=== PATIENT | female | born 1975 | race American Indian/Alaskan Native ===

== ENCOUNTER 2017-08-30 06:09 | Observation (INO) | payer OTHER ==
--- NOTE | 2017-08-23 14:34 | Anesthesia Consultation ---
Anesthesia Consult and Med Hx Date of service: 08/23/17 - Airway Anesthetic Teeth Evaluation: Chipped (right front tooth ) ROM Head & Neck: Adequate Mental/Hyoid Distance: Adequate Mallampati Class: Class II Intubation Access Assessment: Probably Good - Pulmonary Exam CTA: Yes - Cardiac Exam Cardiac Exam: RRR - Pre-Operative Health Status ASA Pre-Surgery Classification: ASA2 Proposed Anesthetic Plan: General Nerve Block: TAP - Cardiovascular System Hx Hypertension: Yes - Hematic Hx Anemia: Yes
[2017-08-23 14:49] LABS: Anion Gap 19 mmol/L; BUN/Creatinine Ratio 13; Blood Urea Nitrogen 8 mg/dL (7-17); Calcium 8.7 mg/dL (8.4-10.2); Carbon Dioxide 25 mmol/L (22-30); Chloride 99.3 mmol/L (98-107); Glucose 91 mg/dL (65-100); Potassium 3.3 mmol/L (3.6-5.0); Sodium 140 mmol/L (137-145)
[2017-08-23 14:58] LABS: Basophils % (Auto) 0.6 % (0.0-1.8); Eosinophils % (Auto) 1.1 % (0.0-4.3); Hematocrit 35.7 % (30.3-42.9); Hemoglobin 11.6 gm/dl (10.1-14.3); Mean Corpuscular HGB Conc 33 % (30-34); Mean Corpuscular Hemoglobin 28 pg (28-32); Mean Corpuscular Volume 85 fl (79-97); Platelet Count 381 K/mm3 (140-440); Red Blood Count 4.22 M/mm3 (3.65-5.03); White Blood Count 7.8 K/mm3 (4.5-11.0)
--- NOTE | 2017-08-29 22:17 | History and Physical Report ---
History of Present Illness Date of examination: 08/29/17 Date of admission: 08/30/2017 Chief complaint: dysfunctional uterine bleeding History of present illness: 42y/o with symptomatic uterine fibroids. She reports profound cramping and pain with her menses. The patient has a known history of uterine fibroids. Recent pelvic ultrasound demonstrated an enlarged uterus measuring 14.7cm with multiple myomas. The largest measuring 4.8cm. The ovaries were unremarkable. The patient has elected for definitive surgical management. Patient has been reassessed/reevaluated/re-examined. H&P has been reviewed. No interval changes. Past History Past Medical History: hypertension, other (uterine fibroids) Past Surgical History: section, other (breast biopsy) [employer] ACCOUNT CLERK History: fibroids Social history: - Obstetrical History : 5 Para: 4 Hx # Term Pregnancies: 3 Number of Pregnancies: 1 Spontaneous Abortions: 1 Induced : 0 Number of Living Children: 4 Medications and Allergies Allergies Allergy/AdvReac Type Severity Reaction Status Date / Time No Known Allergies Allergy Unverified 08/22/17 08:38 Home Medications Medication Instructions Recorded Confirmed Last Taken Type Ferrous Sulfate 325 mg PO DAILY 08/22/17 08/22/17 Unknown History Olmesartan/Amlodipin/Hcthiazid 1 tab PO DAILY 08/22/17 08/22/17 Unknown History [Kbsogvp-Fouzfb-Fldj 40-10-25Mg] Active Meds: Active Medications Famotidine (Pepcid) 20 mg PO PREOP NR Stop: 08/30/17 23:59 Lactated Ringer's (Lactated Ringers) 1,000 mls @ 42 mls/hr IV DIRECT JERONIMO Midazolam HCl (Versed) 2 mg IV PREOP NR Stop: 08/30/17 23:59 Review of Systems All systems: negative Genitourinary: vaginal bleeding, pelvic pain - Vital Signs Vital signs: Vital Signs Temp Pulse Resp BP 98.5 F 76 14 130/80 08/23/17 14:05 08/23/17 14:05 08/23/17 14:05 08/23/17 14:05 Temp Pulse Resp BP Pulse Ox 98.5 F 76 14 130/80 08/23/17 14:05 08/23/17 14:05 08/23/17 14:05 08/23/17 14:05 - Physical Exam Breasts: Positive: deferred Cardiovascular: Regular rate Lungs: Positive: Clear to auscultation Abdomen: Positive: normal appearance Uterus: Positive: enlarged Results Result Diagrams: 08/23/17 13:48 08/23/17 13:48 All other labs normal. Assessment and Plan - Patient Problems (1) Leiomyoma Current Visit: Yes Status: Acute Plan to address problem: proceed with a robotic hysterectomy (2) Dysmenorrhea Current Visit: Yes Status: Acute (3) Menorrhagia Current Visit: Yes Status: Acute
[~2017-08-30 06:09] MED LIST: LACTATED RINGERS 1,000 ML IV SCH; PEPCID PO NR; VERSED IV NR
[2017-08-30] MEDS ORDERED: ANCEF/STERILE WATER 2 GM/20 ML 2 GM/20 ML SYRINGE IV SCH (07:00)
[2017-08-30] MEDS ORDERED: NEOSPORIN GU IR ONE ×2 (07:39→10:13)
[2017-08-30] MEDS ORDERED: GELFOAM POWDER 1GM MM ONE ×2 (07:39→10:13)
[2017-08-30] MEDS ORDERED: THROMBIN (BOVINE) TP ONE ×2 (07:39→10:13)
[2017-08-30] MEDS ORDERED: DIPRIVAN 10 MG/ML IV ONE (07:47)
[2017-08-30] MEDS ORDERED: XYLOCAINE MPF 2% ONE (07:48)
[2017-08-30] MEDS ORDERED: DILAUDID ONE (07:48)
[2017-08-30] MEDS ORDERED: ZEMURON IV ONE (07:48)
--- NOTE | 2017-08-30 07:57 | Anesthesia Day of Surgery ---
Anesthesia Day of Surgery - Day of Surgery Patient Examined: Yes Patient H&P Reviewed: Yes Patient is NPO: Yes
[2017-08-30] MEDS ORDERED: SUBLIMAZE IV NR (08:05)
[2017-08-30] MEDS ORDERED: NACL BACTERIOSTATIC INFILTRATI ONE (08:10)
[2017-08-30] MEDS ORDERED: MARCAINE 0.5% 60 ML INFILTRATI ONE (08:45)
[2017-08-30] MEDS ORDERED: ANCEF/STERILE WATER 2 GM/20 ML IV NR (09:00)
[2017-08-30] MEDS ORDERED: NEURONTIN PO NR (09:00)
[2017-08-30] MEDS ORDERED: NEO SYNEPHRINE/NS Syringe(OR USE) IV ONE (09:38)
[2017-08-30] MEDS ORDERED: ROBINUL ONE (10:03)
[2017-08-30] MEDS ORDERED: LACTATED RINGERS 1,000 ML ONE (10:03)
[2017-08-30] MEDS ORDERED: DECADRON ONE (10:03)
[2017-08-30] MEDS ORDERED: ZOFRAN ONE (10:03)
[2017-08-30] MEDS ORDERED: NEOSTIGMINE ONE (10:04)
[2017-08-30] MEDS ORDERED: NACL 0.9% IR ONE ×2 (10:12→10:13)
--- NOTE | 2017-08-30 11:06 | Operative Report ---
Operative Report Operative Report: Date of surgery: 08/30/2017 Preoperative diagnoses: Symptomatic uterine fibroids; dysmenorrhea; menorrhagia Postoperative diagnoses: Same as above Procedure: Robotic hysterectomy; bilateral salpingectomy; lysis of adhesions Surgeon: Tatyana Dial M.D. Special Education Math Teacher: Regino Manley Anesthesia: Gen. endotracheal anesthesia Estimated blood loss: Less than 100 mL Pathology: Uterus, cervix, leiomyomas, bilateral tubes Indication: 42-year-old with a history of symptomatic uterine 5 voids and worsening menorrhagia. The patient elected to undergo definitive surgical management. Procedure: The patient was taken to the operating room and given general endotracheal anesthesia without complication. She is prepped and draped in a normal sterile fashion. A bivalve speculum was placed in the patient's vagina and a single- tooth tenaculum placed on the anterior lip of the cervix. The uterus was sounded with the uterine sound. A Letsdecco uterine manipulator was placed in the bivalve speculum was then removed. Attention was then turned to the patient's abdomen where a millimeter supra umbilical skin incision was then made. A Veress needle was placed and peritoneal entry was verified water-filled syringe. Insufflation of the peritoneal cavity was performed with CO2 gas. The 12 mm trocar was then placed under direct visualization. An additional 8 mm trocar was placed on the patient's left and right lateral side just opposite of the supraumbilical trocar. An additional 5 mm right lateral trocar was then placed as the accessory port. The patient was then placed in steep Trendelenburg. The da Anthony robot was then engaged. A fenestrated forcep was placed in arm 2 and a vessel sealer was placed in arm 1. The surgeon then transferred to the surgical console. General survey of the patient's abdomen and pelvis revealed an enlarged fibroid uterus. The uterus was noted to be densely adherent to the anterior abdominal wall. Lysis of adhesions had to be performed in order to mobilize the uterus from the anterior abdominal wall. The mesosalpinx was then isolated on the right. The vessel sealer was used to coagulate the mesosalpinx which was then transected. The tube was transected from the ovary. The tubo-ovarian ligament was then coagulated and transected. The round ligament was then coagulated and transected also. The vesicouterine peritoneum was then entered from the patient's right side. The uterine vessels were then coagulated with the vessel sealer. The vessels were then transected . Attention was then turned to the patient's left side where the tubo-ovarian ligament and mesosalpinx were again isolated coagulated and transected. The vesical peritoneum was then entered from the left and joined in the midline. Peritoneum was reflected off of the lower uterine segment. Uterine vessels were then coagulated and then transected. The blood supply to the uterus was adequately contained, a posterior colpotomy was made. The V care ring was visualized. Posterior colpotomy was created with the monopolar scissors. The incision was continued circumferentially until anterior colpotomy was made. The cervix and uterus were amputated from the vaginal cuff. The uterus was then removed along with the tubes bilaterally through the vagina and a warm laparotomy sponge was placed and maintain the pneumoperitoneum. The vaginal cuff was then closed in a running fashion with V lock suture. Irrigation of the pelvis was performed. Gelfoam with thrombin was applied to the incision. The supraumbilical 12 mm trocar site was closed with the Riog Montaño device. The skin was then reapproximated with 4-0 Monocryl. The tissue was sent to pathology which included the cervix and uterus. The patient was then successfully extubated. She was then taken to the recovery room in stable condition. All sponge laps and needle counts were correct x2.
[2017-08-30] MEDS ORDERED: NARCAN 0.4 MG/1 ML IV PRN (11:09)
[2017-08-30] MEDS ORDERED: ZOFRAN IV PRN (11:10)
[2017-08-30] MEDS ORDERED: TYLENOL PO PRN (11:10)
[2017-08-30] MEDS ORDERED: MOTRIN PO PRN (11:10)
[2017-08-30] MEDS ORDERED: MILK OF MAGNESIA PO PRN (11:10)
[2017-08-30] MEDS: MORPHINE PCA 30MG/30ML IV SCH (11:34)
[2017-08-30] MEDS ORDERED: TORADOL IV PRN (12:15)
[2017-08-30] MEDS: TORADOL IV SCH ×3 (14:54→22:35)
[2017-08-30] MEDS: D5LR 1,000 ML IV SCH (17:02)
[2017-08-31] MEDS: MORPHINE PCA 30MG/30ML IV SCH (00:10)
[2017-08-31] MEDS: D5LR 1,000 ML IV SCH (00:18)
[2017-08-31 05:28] LABS: Hematocrit 32.7 % (30.3-42.9); Hemoglobin 10.7 gm/dl (10.1-14.3)
[2017-08-31] MEDS: TORADOL IV SCH ×2 (09:10→17:18)
[2017-08-31] MEDS: PERCOCET 5/325 PO PRN ×2 (09:20→21:26)
[2017-08-31] MEDS ORDERED: CITRATE OF MAGNESIA PO NR (12:00)
--- NOTE | 2017-08-31 13:41 | Progress Note ---
Assessment and Plan POD#1 s/p robotic jeannine and lysis of adhesion no complaints pain contolled +flatus urinating well tolerating po ambulating consider d/c home tonight f/u in 4 weeks Subjective - Subjective Date of service: 08/31/17 Principal diagnosis: s/p robotic jeannine and lysis of adhesions Patient reports: appetite normal, voiding normally, pain well controlled, flatus , ambulating normally Objective - Vital Signs Latest vital signs: Vital Signs Temp Pulse Resp BP BP Pulse Ox 08/31/17 08:43 98.3 F 93 H 18 108/66 96 08/31/17 04:03 98.7 F 94 H 18 107/65 95 08/30/17 23:41 99.3 F 99 H 18 123/63 97 08/30/17 23:00 20 08/30/17 20:13 98.6 F 98 H 18 98/57 94 08/30/17 18:13 20 08/30/17 18:09 99 F 98 H 20 102/59 91 08/30/17 17:01 20 08/30/17 15:24 20 08/30/17 14:54 20 Intake and Output 08/30/17 08/31/17 08/31/17 23:59 07:59 15:59 Intake Total 1408.333 Output Total 250 1600 Balance -250 -191.667 Intake: IV 908.333 D5lr 1,000 ml @ 125 mls/ 908.333 hr IV DIRECT JERONIMO Rx#: [id number] Oral 500 Output: Urine 250 1600 Indwelling Catheter 250 1600 Other: Total, Intake Amount 500 Total, Output Amount 250 1600 Voiding Method Indwelling Catheter Toilet - Exam Breasts: Present: normal Cardiovascular: Present: Regular rate, Normal S1 Lungs: Present: Clear to auscultation, Normal air movement Abdomen: Present: normal appearance, soft, normal bowel sounds. Absent: distention, tenderness, guarding Vulva: both: normal Extremities: Present: normal Deep Tendon Reflex Grade: Normal +2 Incision: Present: normal, dry, intact
[2017-08-31] MEDS ORDERED: DULCOLAX PR PRN (13:54)
--- NOTE | 2017-08-31 18:44 | Discharge Summary ---
Providers - Providers Date of Admission: 08/30/17 11:10 Date of discharge: 08/31/17 Attending physician: MONICA WICK Primary care physician: MARI VAUGHN MD Hospitalization Reason for admission: other (s/p robotic hysterectomy ) Procedure: other (s/p hysterectomy robotic ) Incision: normal, dry, intact Hospital course: Patient did well post op. Ambulating. tolerating diet and pain well controlled with po meds. She was discharged home on postop day #1 with follow up in 4 weeks. Condition at discharge: Good Disposition: DC-01 TO HOME OR SELFCARE Plan - Discharge Medications Prescriptions: Ibuprofen [Motrin] 800 mg PO Q8HR PRN #60 tablet PRN Reason: Pain Oxycodone HCl/Acetaminophen [Percocet 7.5/325 mg] 1 each PO Q6HR PRN #45 tablet PRN Reason: Pain - Provider Discharge Summary Activity: routine, no sex for 6 weeks Diet: routine Instructions: routine Additional instructions: [] Smoking cessation referral if applicable(refer to patient education folder for contact #) [] Refer to [facility] Booklet Call your doctor immediately for: * Fever > 100.5 * Heavy vaginal bleeding ( >1 pad per hour) * Severe persistent headache * Shortness of breath * Reddened, hot, painful area to leg or breast * Drainage or odor from incision. * Keep incision clean and dry at all times and follow doctor's instructions regarding bathing/showering - Follow up plan Follow up: MONICA WICK MD [Staff Physician] - 09/28/17
[2017-08-31 21:27] VITALS: BP 110/70
== END 2017-08-31 23:00 | disposition home or self-care (01) ==
LOC: OR 06:09 → 3A 11:10 → OB 12:14
PROVIDERS: ADMIT Obstetrics & Gynecology; ATTEND Obstetrics & Gynecology
DX: D25.9 Leiomyoma of uterus, unspecified (principal); N93.8 Other specified abnormal uterine and vaginal bleeding; N94.6 Dysmenorrhea, unspecified; N92.0 Excessive and frequent menstruation with regular cycle; I10 Essential (primary) hypertension
CPT/HCPCS: 36415; 58571; 64450; 80048; 81025; 85014; 85018; 85025; 86850; 86900; 86901; 88302; 88307; 96374; 96375; 96376; A4217; A4649; G0378; J0690; J1100; J1170; J1885; J2250; J2270; J2370; J2405; J2704; J2710; J3010; J7120; J7121; S2900; 88305